=== PATIENT | male | born 1945 | race Caucasian/White ===

== ENCOUNTER 2018-07-27 17:42 | Emergency (ER) | payer MEDICARE ==
[~2018-07-27 17:42] MED LIST: Sodium Chloride Irrig Solution 250 ML BOT ONE
[2018-07-27] MEDS ORDERED: Adacel (T-DAP) 0.5 ML SYRINGE ONE (18:01)
== END 2018-07-27 18:39 | disposition home or self-care (01) ==
LOC: MADERS 17:42
DX: S61.412A Laceration without foreign body of left hand, initial encounter (principal); E78.5 Hyperlipidemia, unspecified; I10 Essential (primary) hypertension; Z79.82 Long term (current) use of aspirin; Z79.899 Other long term (current) drug therapy; W26.8XXA Contact with other sharp object(s), not elsewhere classified, initial encounter
CPT/HCPCS: 12001; 90471; 90715

== ENCOUNTER 2022-04-26 16:13 | Emergency (ER) | payer MEDICARE ==
[2022-04-26] MEDS ORDERED: Lidocaine 1% w/Epinephrine 1:100K 20 ML VIAL ONE (17:02)
[2022-04-26] MEDS ORDERED: Lidocaine 1%/Epinephrine 1:100K 10 ML VIAL ONE (17:03)
[2022-04-26] MEDS ORDERED: Lidocaine 1% (PF) 30 ML VIAL ONE (17:05)
[2022-04-26] MEDS ORDERED: Cephalexin 500 MG CAP ONE (17:22)
== END 2022-04-26 17:49 | disposition home or self-care (01) ==
LOC: MADERS 16:13
DX: S92.911B Unspecified fracture of right toe(s), initial encounter for open fracture (principal); I10 Essential (primary) hypertension; E78.00 Pure hypercholesterolemia, unspecified; W23.0XXA Caught, crushed, jammed, or pinched between moving objects, initial encounter; Z79.82 Long term (current) use of aspirin; Z79.899 Other long term (current) drug therapy
CPT/HCPCS: 99282; J2001